=== PATIENT | female | born 1970 | race Caucasian/White ===

== ENCOUNTER 2016-07-03 11:00 | Inpatient (IN) | payer SELFPAY ==
--- NOTE | ~2016-07-03 | PA ---
Unit #: [id number] #: [id number] Patient: IZA KILPATRICK [id number] [facility] [address] [place] [address] [id number] MR#: [id number] NAME: IZA KILPATRICK ROOM: P256 Age: 45 Sex: F Admission Date: 07/03/2016 : 1970 Date of Assessment: 07/04/2016 Attending Physician: Chandler Wall M.D. Admitting Physician: Chandler Wall M.D. Primary Care Physician: Generic Doctor Not In System PSYCHIATRIC ASSESSMENT IDENTIFYING INFORMATION The patient is a 45-year-old white female, admitted after she had presented to this facility voicing some suicidal ideation. INFORMANT(S) Patient, patient reliability is fair. CHIEF COMPLAINT "I just wanted some help." HISTORY OF PRESENT ILLNESS The patient is a 45-year-old white female, who was admitted after presenting to this facility accompanied by her daughter yesterday. The patient is from [place], [place] but her daughter, who attends [facility] [employer] had gone to [place] to get the patient secondary to some recent increases in depression and anxiety. The patient reports that she was recently admitted to a facility in [place] but reports that she was on a unit with "violent offenders" and left that unit. She reports that since being started on Dilantin several weeks ago she has had worsening symptoms of anxiety and depression. She is currently denying suicidal or homicidal ideations. She denies prior suicide attempts or gestures. She does have a history of discharge from the [facility] related to a history of bipolar disorder and epilepsy. The patient reports no current suicidal ideation. She reports that her anxiety has been exacerbated in her opinion by initiation of Dilantin. She plans to stay with her daughter upon her discharge from this facility for some time but was unaware that [facility] is [facility] the [facility]. PAST PSYCHIATRIC HISTORY As noted previously, the patient has history of several admissions to the [facility] in [place], [place] including one that ended on 06/30/2016. PAST MEDICAL HISTORY Significant for a history of seizure disorder. The patient is also noted to be extremely thin. She suffers from dyslipidemia and environmental allergies as well as overactive bladder. MEDICATIONS 1. BuSpar 2. Vitamin D 3. Zocor 4. Lamictal 5. Topamax Unit #: [id number] #: [id number] Patient: IZA KILPATRICK 6. Desyrel 7. Flonase 8. Proventil 9. Artificial tears 10. Xanax 11. Ditropan 12. Effexor XR ALLERGIES Gabapentin, naproxen, and Dilantin FAMILY HISTORY Noncontributory. SOCIAL HISTORY The patient lives with her mother in [place], [place]. She was discharged medically from the [facility] in 1986. She was never deployed in combat per her report. The patient reports no use of psychoactive substances but is a smoker. MENTAL STATUS EXAM At this time reveals the patient to be a thin white female, appearing her stated age. She is in no apparent physical distress at the time of the examination. She is awake, alert, and oriented in all spheres. Her mood is euthymic. Her affect full-range. Speech is generally relevant and coherent though a bit hyper-inclusive though there is no pressured or tangential quality noted. The patient is fully cooperative during the interview. Her intelligence is judged to be in the average range based on fund of knowledge. The patient denies current suicidal or homicidal ideation, and denies any psychotic symptoms. Her judgment and insight appear to be reasonably intact. ASSETS Motivation for change, supportive family. LIABILITIES Multiple health issues. DIAGNOSTIC IMPRESSION Linton I: Bipolar disorder, most recent episode depressed. Anxiety disorder, unspecified. Linton II: Linton III: Overactive bladder. Seizure disorder. Environmental allergies. TREATMENT PLAN The patient is currently requesting discharge from the hospital. I will go ahead and provide her with a ten day supply of Xanax to be taken on a p.r.n. basis four times daily and have suggested that she seek follow up through the auspices of the outpatient services at the [facility] here in [place]. The patient is agreeable with this plan and discharge is ordered. Dictated by... Unit #: [id number] #: [id number] Patient: IZA KILPATRICK Chandler Wall M.D. Jamie TD: 07/04/2016 13:06 JOB #: [id number] PSYCHIATRIC ASSESSMENT Page 1 of 1 X Chandler Wall MD PSYCHIATRIC ASSESSMENT
--- NOTE | ~2016-07-03 | HP ---
Unit #: [id number] #: [id number] Patient: IZA KILPATRICK [id number] [place] [address] [id number] MR#: [id number] NAME: IZA KILPATRICK ROOM: P256 Age: 45 Sex: F Admission Date: 07/03/2016 : 1970 Attending Physician: Chandler Wall M.D. Admitting Physician: Chandler Wall M.D. Primary Care Physician: Generic Doctor Not In System HISTORY AND PHYSICAL NOTE Iza is a 45-year-old female admitted on 07/03/[address] [place] [address], was present on 07/05/2016 for H and P. However, she had already been discharged. Dictated by... Vitor David TD: 07/05/2016 07:09 JOB #: [id number] HISTORY AND PHYSICAL Page 1 of 1 X JESSICA SANDERS APRN HISTORY AND PHYSICAL
--- NOTE | ~2016-07-03 | A ---
[facility] DATE: 07/04/16 Patient: IZA KILPATRICK Physician: NESTOR Address: [address] [facility] [address] Room/Bed: [address], Zip: [place] [address] Admit Date: 07/03/16 Date of : [birth year] Height: 4 9 Weight: 96 [phone] NUTRITIONAL ASSESSMENT: REASON: 2 points malnutrition risk score re: weight loss, eating disorder + Consult re: BMI 21, hx anorexia, 100 lb weight loss recently Admitting Dx: 45 y/o female admitted with SI, anxiety, depression PMH: Anorexia nervosa (dx 1 year ago), osteoarthritis, fibromyalgia, chronic pain, chronic anxiety/depression, hemorrhoids, epilepsy, Bipolar disorder, asthma Anthropometrics: Ht: 57", Wt: 97 lbs, BMI: 21 (normal), IBW: 93 lbs, 104% IBW Labs: None available yet Meds: Mag-Al, Milk of Mg, Vitamin D, psych meds noted I/O & Bowel function: + hx hemorrhoids Skin Integrity: Intact Assessment: Chart reviewed, events noted. See reason for assessment, admitting dx and PMH as stated above. Patient lives alone, was D/C from the [facility] in 1996. Patient apparently was diagnosed with anorexia nervosa approx. 1 year ago and reports a weight loss of 100 lbs in that time (51% body weight; severe loss), no past weights available for comparison. Despite this severe weight loss her weight is still within the normal BMI range based on her height, she is 104% IBW, however we want to prevent further unintentional loss. Patient is on a regular diet with Ensure clear eng[place] ordered BID and large portion entree ordered at lunch and dinner. No H&P available at this time, however in the needs assessment an allergy to artificial sweeteners is documented, but not further specified. Suggest avoiding sugar free drinks/foods. Of note, Ensure Clear does have milk products but does not have artificial sweeteners- is sweetened with corn syrup solids. See recs below, will follow to further determine PO intake while inpatient. Dx: 1) Intentional weight loss r/t eating disorder AEB 100 lb weight loss (51% body weight) in 1 year. Intervention: Outpatient counseling, large entree, Ensure Clear BID Monitoring, Evaluation and Goals: 1. Provide/consume adequate nutrition with PO intake > 50% of meals/supps. 2. Prevent further weight loss. 3. Prevent/correct micro/macro nutrient deficiencies. [facility] DATE: 07/04/16 Patient: IZA KILPATRICK Physician: NESTOR Address: [address] [place] [address] Room/Bed: [id number], Zip: [place] [address] Admit Date: 07/03/16 Date of : [birth year] Height: 4 9 Weight: 96 [id number] Monitor: Per protocol, criteria to determine if above goals met Recommendations: 1. Continue regular diet. Encourage adequate intake of well-balanced meals to include protein, dairy, grains, fruits and vegetables. Discourage skipping meals. 2. Will send large portion entree with lunch and dinner as ordered. Will send Ensure Clear mixed england BID as ordered. 3. Suggest outpatient counseling related to eating disorder. 4. Please weigh q 3 days for monitoring purposes, as the patient has had severe weight loss over the past year related to her anorexia nervosa. RD will follow to further assess PO intake and nutritional needs Moderate nutrition risk Respectfully, Debbie Rehman, ANDREA, LD [facility] cc: client file
--- NOTE | ~2016-07-03 | DS ---
Unit #: [id number] #: [id number] Patient: IZA KILPATRICK [id number] [facility] [address] [place] [address] [id number] I MR#: [id number] NAME: IZA KILPATRICK ROOM: [facility] Age: Sex: F Admission Date: 07/03/2016 : 1970 Discharge Date: 07/04/2016 Attending Physician: Chandler Wall M.D. DISCHARGE SUMMARY JOB NOTE: VERIFY ADMIT DATE. REASON FOR ADMISSION The patient is a 45-year-old white female, admitted with worsening symptoms of anxiety. She carries a diagnosis of a bipolar spectrum disorder. HOSPITAL COURSE The patient was admitted to the [facility] unit and placed on suicide precautions. She was continued on previously prescribed home medications. When seen by this physician on 07/04/2016, the patient vehemently denied any suicidal ideation stated she was "just wanting some help with the anxiety." The patient was apprised of the fact that there is a [place] Facility in the [facility], where she can seek care and it was recommended that she do so once discharged which she did request to take place on 07/04/2016. She will be given a 10-day supply of alprazolam 0.5 mg q.i.d. to address symptoms of increased anxiety, which she feels were brought by recent initiation of Dilantin, a medication which she says has been discontinued. FINAL DIAGNOSES Bipolar disorder, most recent episode depressed. Seizure disorder, overactive bladder, hypercholesterolemia, environmental allergies. DISPOSITION ON DISCHARGE The patient is discharged on the following medications: BuSpar 15 mg b.i.d. for anxiety, vitamin D 1000 units once daily for vitamin supplementation, Zocor 40 mg at bedtime for hyperlipidemia, Lamictal 200 mg b.i.d. for mood stabilization, Topamax 50 mg once daily for mood stabilization and seizure disorder, Desyrel 100 mg at bedtime p.r.n. insomnia, Flonase pills once daily for environmental allergies, Proventil HFA 2 puffs q.4 hours for asthma, artificial tears apply p.r.n. dry eyes, Xanax 0.5 mg q.i.d. p.r.n. anxiety, Ditropan 10 mg b.i.d. for overactive bladder, and Effexor XR 100 mg b.i.d. depression. DISCHARGE INSTRUCTIONS No dietary or physical restrictions were placed on the patient at the time of discharge. FOLLOWUP Followup will take place through the auspices of the [facility]. PROGNOSIS Unit #: [id number] #: [id number] Patient: IZA KILPATRICK The patient's prognosis is considered fair. Dictated by... Chandler Wall M.D. CB/dominique TD: 07/04/2016 13:25 JOB #: [id number] DISCHARGE SUMMARY Page 1 of 1 X Chandler Wall MD X DISCHARGE SUMMARY
[2016-07-04 09:39] LABS: BASOPHIL% 0.5 % (0-2.5); HEMATOCRIT 42.2 % (35.0-45.0); LYMPHOCYTE# 3.1 X10e3 (1.0-3.5); LYMPHOCYTE% 37.9 % (17.0-45.0); MEAN CELL VOLUME 91.1 FL (83-96); MEAN CORPUSCULAR HEMOGLOBIN 30.3 PG (28-34); MEAN CORPUSCULAR HGB CONC 33.2 g/dL (30-36); MEAN PLATELET VOLUME 7.7 FL (6.5-11.5); MONOCYTE# 0.6 X10e3 (0-1.0); MONOCYTE% 7.4 % (3.0-12.0); NEUTROPHIL# 4.4 X10e3 (1.5-7.1); NEUTROPHIL% 54.2 % (40-75); PLATELET COUNT 281 X10e3 (140-420); RED BLOOD COUNT 4.63 X10e (3.90-5.30); RED CELL DISTRIBUTION WIDTH 12.5 % (11.0-15.5); WHITE BLOOD COUNT 8.1 X10e3 (4.0-10.5)
[2016-07-04 09:43] LABS: DIFF IND NO
[2016-07-04 10:02] LABS: ALBUMIN SERUM 4.3 g/dL (3.5-5.0); BILIRUBIN,TOTAL 0.3 mg/dL (0.2-2.0); CALCIUM SERUM 9.7 mg/dL (8.4-10.2); CREATININE SERUM 0.7 mg/dL (0.6-1.4); GLOM FILT RATE Estimated 103.2 mL/min (>60); POTASSIUM 4.8 mmol/L (3.5-5.1); PROTEIN TOTAL SERUM 6.9 g/dL (6.0-8.3)
[2016-07-04 13:37] LABS: AMPHETAMINE NEG (NEG); BARBITURATES NEG (NEG); BENZODIAZEPINES POS (NEG); COCAINE NEG (NEG); MARIJUANA NEG (NEG); OPIATES NEG (NEG); TRICYCLIC ANTIDEPRESSANTS NEG (NEG); U METHADONE NEG (NEG)
== END 2016-07-04 16:45 | disposition home or self-care (01) | DRG 885 ==
LOC: P2L 14:50
PROVIDERS: Specialist
DX: F31.30 Bipolar disorder, current episode depressed, mild or moderate severity, unspecified (principal); G40.909 Epilepsy, unspecified, not intractable, without status epilepticus; N32.81 Overactive bladder; R41.9 Unspecified symptoms and signs involving cognitive functions and awareness; E78.00 Pure hypercholesterolemia, unspecified; F41.9 Anxiety disorder, unspecified
CPT/HCPCS: 80053; 80307; 85025